=== PATIENT | female | born 1995 | race Caucasian/White ===

== ENCOUNTER 2020-09-26 11:04 | Emergency (ER) | payer BC ==
[~2020-09-26] VITALS: Ht 167.6 cm; Wt 59.0 kg
--- OUTSIDE RECORDS SUMMARY | 2020-09-26 11:11 | XMS REPORT | Clinical Summary ---
Author Author [facility] Organization [facility] Address Unknown Phone Unavailable Care Team Providers Care Furnace Helper Name Role Phone Lupe Velásquez MD PCP Allergies No Known Active Allergies Medications End Date Status Medication Sig Dispensed Refills Start Date 11/19/2019 norgestimate-ethinyl Take 1 tablet 56 tablet 0 estradiol (ORTHO by mouth 9 TRI-CYCLEN LO) daily for 56 0.18/0.215/0.25 mg-25 mcg days. per tablet Active Problems Not on file Encounters Care Team Description Date Type Specialty Mildred Castrejon MD 11/20/2019 Refill Obstetrics and Gyne cology after 09/26/2019 Surgical History Surgery Date Site/Laterality Comments TONSILLECTOMY WISDOM TOOTH EXTRACTION FINGER SURGERY 11/13/2013 - Right 11/12/2014 Medical History Medical History Date Comments Inguinal pain, right Family History Medical History Relation Name Comments Diabetes Father Hypertension Father Hypertension Mother Relation Name Status Comments Father Alive Mother Alive Social History Date Tobacco Use Types Packs/Day Years Used Never Smoker Smokeless Tobacco: Never Used Drinks/Week oz/Week Comments Alcohol Use social Yes Sex Assigned at Date Recorded Not on file Last Filed Vital Signs Not on file Plan of Treatment Health Maintenance Due Date Last Done Comments CERVICAL CANCER SCREENING 02/20/2017 CHLAMYDIA SCREENING 05/27/2020 05/27/2019 INFLUENZA VACCINE 06/13/2020 Results Not on fileafter 09/26/2019 Insurance Type Payer Benefit Subscriber ID Effective Phone Address Plan / Dates Group PPO BCBS ANTHEM [id number] BLUE CROSS resent Advance Directives For more information, please contact: [phone] 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
[2020-09-26] MEDS ORDERED: ONDANSETRON HCL INJ 2MG/ML 2ML 2 MG/ML VIAL IV NR (11:16)
[2020-09-26] MEDS ORDERED: SODIUM CHLORIDE 0.9% 1000ML 1,000 ML IV STA (11:16)
--- NOTE | 2020-09-26 11:49 | Emergency Department Note ---
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 DENIES ANY LOC C/O PAINFUL KNOT TO TOP OF HEAD, HEADACHE, NAUSEA, SIDE OF NECK PAIN, PHOTOPHOBIA. Historian: Patient Arrival Mode: Car Additional Treatment GLOVE PRINTER: NONE Delivery Assistant Required: No Onset (how long ago): hour(s) Location: HEAD AND NECK Quality: ACHE Radiation: Reports non-radiation Severity: moderate Onset quality: sudden Timing of current episode: constant Progression: unchanged Chronicity: new Relieving factors: none Exacerbating factors: none Associated symptoms: Reports denies other symptoms Past Medical/Family History Physician Review I have reviewed the patient's past medical and family history. Any updates have been documented here. Past Medical History Recent Fever: No Clinical Suspicion of Infectio: No New/Unexplained Change in Ment: No Past Medical History: None Past Surgical History: T&A Other Surgery: RIGHT 5TH FINGER, RECONSTRUCTION Social History Smoking Cessation: Never Smoker Counseling Performed: No Alcohol Use: Social Any Illegal Drug Use: No TB Exposure/Symptoms: No Physically hurt or threatened: No Family History Family history of heart diseas: No Other Any Pre-Existing Lines (PICC,: No Review of Systems Review of Systems Constitutional: Reports no symptoms EENTM: Reports no symptoms Cardiovascular: Reports no symptoms Respiratory: Reports no symptoms Gastrointestinal: Reports no symptoms Genitourinary: Reports no symptoms Musculoskeletal: Reports neck pain Integumentary: Reports no symptoms Neurological: Reports headache Psychological: Reports no symptoms Endocrine: Reports no symptoms Hematological/Lymphatic: Reports no symptoms Physical Exam Related Data Allergies: Coded Allergies: No Known Allergies (Unverified , 09/26/20) Triage Vital Signs Vital Signs Date Time Temp Pulse Resp B/P (MAP) Pulse Ox O2 Delivery O2 Flow Rate FiO2 09/26/20 11:09 98.3 81 18 120/83 100 Room Air Vital signs reviewed: Yes Physical Exam CONSTITUTIONAL Constitutional: Present well-developed, Present well-nourished HENT HENT: Present normocephalic, Present atraumatic, Present oropharynx clear/moist, Present nose normal HENT L/R: Present left ext ear normal, Present right ext ear normal EYES Eyes: Reports PERRL, Reports conjunctivae normal NECK Neck: Present ROM normal, Present other (BILAT PARACERVICAL MUSCLE TENDERNESS, NO MIDLINE TTP) PULMONARY Pulmonary: Present effort normal, Present breath sounds normal CARDIOVASCULAR Cardiovascular: Present regular rhythm, Present heart sounds normal, Present capillary refill normal, Present normal rate GASTROINTESTINAL Abdominal: Present soft, Present nontender, Present bowel sounds normal GENITOURINARY Genitourinary: Present exam deferred SKIN Skin: Present warm, Present dry MUSCULOSKELETAL Musculoskeletal: Present ROM normal NEUROLOGICAL Neurological: Present alert, Present oriented x 3, Present DTRs normal, Present no gross motor or sensory deficits; Absent cranial nerve deficit, Absent sensory deficit, Absent abnormal gait, Absent weakness PSYCHOLOGICAL Psychological: Present mood/affect normal, Present judgement normal Results Imaging Imaging results reviewed: Yes Impressions Examination: CT of the brain without contrast, CT of the cervical spine without contrast History: 25-year-old female with fall, headache, nausea, hit left posterior head, neck pain Comparison studies: None Technique: Axial images were obtained from the brain and cervical spine. Coronal and sagittal images reconstructed from the axial data. Dose modulation, iterative reconstruction, and/or weight based adjustment of the mA/kV was utilized to reduce the radiation dose to as low as reasonably achievable. Intravenous contrast: None Findings: Head CT: Motion and beam hardening artifacts through the skull base mildly compromises evaluation. Scalp/skull: No abnormalities. No fractures, blastic or lytic lesions. Brain sulci: Appropriate for age. Ventricles: Normal in size and configuration. No hydrocephalus. Extra-axial spaces: No masses. No fluid collections. Parenchyma: No abnormal densities. No masses, hemorrhage, acute or chronic cortical vascular insults. Sellar/suprasellar region: No abnormalities. Craniocervical junction: Patent foramen magnum. No Chiari one malformation Cervical spine CT: Alignment: Straightening of the cervical lordosis with slight reversal centered at C5-C6 may be positional. No scoliosis. Cervicomedullary junction: No abnormalities. The foramen magnum is patent. Soft tissues:No gross abnormalities . Soft tissues: No abnormalities.. Paraspinal muscles: Unremarkable Spinal cord: Can not be evaluated. Vertebrae: Normal in height and density. No fractures. No infection or neoplasm. Degenerative changes: None. Incidental findings: Minimal right inferior mastoid air cell opacification is not associated with overlying destructive bony changes or soft tissue changes. A 4 mm calcified right thyroid nodule is not associated with thyromegaly. IMPRESSION: Head CT: No acute abnormalities. Cervical spine CT: 1. No acute abnormalities. 2. Cannot adequately evaluate for ligament, spinal cord and or vascular abnormalities. A preliminary report was provided by Dr. Liu on 09/26/2020 at 12:35 PM. Assessment & Plan Medical Decision Making MDM FALL, HIT HEAD WITHOUT LOC, HAS HEADACHE/NECK PAIN AND NAUSEA - CHECK CT BRAIN & C-SPINE - R/O CEREBRAL BLEED, CERV FX Reassessment Reassessment FEELS MUCH BETTER WITH IVF'S, TORADOL, REGLAN, BENADRYL, HEADACHE AND NECK PAIN COMPLETELY RESOLVED. DC HOME, F/U PCP, SHE DOES NOT WANT ANY PAIN MEDS (SAYS SHE JUST WANTED TO MAKE SURE SHE WAS OKAY), TYLENOL/IBUPROFEN UD PRN, RTED PRN, HEAD INJURY PRECAUTIONS Assessment & Plan Final Impression: (1) Head injury, acute, without loss of consciousness (2) Fall Depart Disposition: HOME, SELF-CARE Last Vital Signs Date Time Temp Pulse Resp B/P (MAP) Pulse Ox O2 Delivery O2 Flow Rate FiO2 09/26/20 11:09 98.3 81 18 120/83 100 Room Air Medications in the ED Ondansetron HCl 4 mg ONCE IV ; Start 09/26/20 at 11:16; Stop 09/26/20 at 12:59 Sodium Chloride 1,000 ml @ 0 mls/hr Q0M STAT IV ; Start 09/26/20 at 11:16; Stop 09/26/20 at 11:17 VENECIA ENRIQUE MD Sep 26, 2020 11:49
--- NOTE | 2020-09-26 12:36 | Diagnostic Imaging Report ---
Examination: CT of the brain without contrast, CT of the cervical spine without contrast History: 25-year-old female with fall, headache, nausea, hit left posterior head, neck pain Comparison studies: None Technique: Axial images were obtained from the brain and cervical spine. Dose modulation, iterative reconstruction, and/or weight based adjustment of the mA/kV was utilized to reduce the radiation dose to as low as reasonably achievable. FINDINGS: Head CT: Motion and beam hardening artifacts through the skull base mildly compromises evaluation. Scalp/skull: No abnormalities. No fractures, blastic or lytic lesions. Brain sulci: Appropriate for age. Ventricles: Normal in size and configuration. No hydrocephalus. Extra-axial spaces: No masses. No fluid collections. Parenchyma: No abnormal densities. No masses, hemorrhage, acute or chronic cortical vascular insults. Sellar/suprasellar region: No abnormalities. Craniocervical junction: Patent foramen magnum. No Chiari one malformation Cervical spine CT: Alignment: Straightening of the cervical lordosis with slight reversal centered at C5-C6 may be positional. No scoliosis. Cervicomedullary junction: No abnormalities. The foramen magnum is patent. Soft tissues:No gross abnormalities . Soft tissues: Approximately 3 mm calcification in the right lobe of the fibroglandular and possible underlying thyroid nodule , if not previously evaluated an ultrasound is recommended for further characterization. Paraspinal muscles: Unremarkable Spinal cord: Can not be evaluated. Vertebrae: Normal in height and density. No fractures. No infection or neoplasm. Degenerative changes: None. Incidental findings: Minimal right tip of the mastoid air cell opacification is not associated with overlying destructive bony changes or soft tissue changes, likely corresponds to effusion/secretions. IMPRESSION: Head CT: No acute abnormalities. Cervical spine CT: 1. No acute abnormalities. 2. Cannot adequately evaluate for ligament, spinal cord and or vascular abnormalities. A preliminary report was provided by Dr. Liu on 09/26/2020 at 12:35 PM. The images and preliminary report provided by the neuroradiology fellow were reviewed and a final report issued by Dr. Valdez neuroradiology faculty on 09/26/2020 at 1:45 PM. Signed by: Dr. Agustina Dangelo M.D. on 09/26/2020 1:46 PM
[2020-09-26] MEDS ORDERED: DIPHENHYDRAMINE HCL INJ 50 MG/ML VIAL IV NR (13:15)
[2020-09-26] MEDS ORDERED: KETOROLAC TROMETHAMINE 30 MG/ML VIAL IV NR (13:15)
[2020-09-26] MEDS ORDERED: METOCLOPRAMIDE HCL 10 MG/2ML VIAL IV NR (13:15)
[2020-09-26] MEDS ORDERED: SODIUM CHLORIDE 0.9% 250ML 250 ML ONE (13:31)
[2020-09-26 14:02] VITALS: BP 133/77
== END 2020-09-26 14:13 | disposition home or self-care (01) ==
LOC: ER 11:09
DX: S00.83XA Contusion of other part of head, initial encounter (principal); W01.198A Fall on same level from slipping, tripping and stumbling with subsequent striking against other object, initial encounter; Y93.41 Activity, dancing; Y92.89 Other specified places as the place of occurrence of the external cause
CPT/HCPCS: 70450; 72125; 99284; J1200; J1885; J2405; J2765; J7030; J7050